=== PATIENT | female | born 1940 | race Caucasian/White ===

== ENCOUNTER 2018-05-02 05:19 | Inpatient (IN) ==
[2018-05-02] MEDS ORDERED: VANCOMYCIN INJ 1,000 MG in SODIUM CHLORIDE 0.9% 250 ML IV ONE (06:00)
[2018-05-02] MEDS ORDERED: ceFAZolin 1,000 MG in SYRINGE 1 EACH IV ONE (06:00)
[2018-05-02] MEDS ORDERED: ceFAZolin 1,000 MG VIAL ONE (06:06)
[2018-05-02] MEDS ORDERED: VANCOMYCIN 1,000 MG VIAL ONE (06:06)
[2018-05-02] MEDS ORDERED: PANTOPRAZOLE 40 MG TABLET PO ONE ×2 (06:17→06:44)
[2018-05-02] MEDS ORDERED: TRANEXAMIC ACID 1,000 MG/10 ML VIAL ONE (06:21)
[2018-05-02] MEDS ORDERED: LACTATED RINGERS 1,000 ML IV SCH (06:30)
[2018-05-02] MEDS ORDERED: BUPIVACAINE SPINAL 0.75% 2 ML AMP SPINAL ONE (06:39)
[2018-05-02] MEDS ORDERED: ROPIVACAINE 0.5% 30 ML VIAL ONE (06:39)
[2018-05-02] MEDS ORDERED: BACITRACIN OINT 0.9 GM PACK TOP ONE (06:41)
[2018-05-02] MEDS ORDERED: DEXTROSE 50% 25 GM/50 ML VIAL IV PRN (07:22)
[2018-05-02] MEDS ORDERED: GLUCAGON 1 MG VIAL IM PRN (07:22)
[2018-05-02] MEDS ORDERED: MORPHINE 4 MG/1 ML VIAL IV PRN (07:23)
[2018-05-02] MEDS ORDERED: ZALEPLON 5 MG CAPSULE PO PRN (07:23)
[2018-05-02] MEDS ORDERED: diphenhydrAMINE CAP 25 MG CAPSULE PO PRN (07:23)
[2018-05-02] MEDS ORDERED: ONDANSETRON 4 MG/2 ML VIAL IV PRN (07:23)
[2018-05-02] MEDS ORDERED: fentaNYL 100 MCG/2 ML VIAL ONE (08:51)
[2018-05-02] MEDS ORDERED: PROPOFOL 200 MG/20 ML VIAL IV ONE (08:51)
[2018-05-02] MEDS ORDERED: MIDAZOLAM 2 MG/2 ML VIAL ONE (08:51)
[2018-05-02] MEDS ORDERED: KETAMINE 500 MG/10 ML VIAL ONE (08:52)
[2018-05-02] MEDS ORDERED: SODIUM CHLORIDE 0.9% 100 ML IV ONE (08:52)
[2018-05-02] MEDS: LACTATED RINGERS 1,000 ML IV SCH ×2 (09:40→19:09)
[2018-05-02] MEDS: INSULIN LISPRO 100 UNIT/ML SUBCUT SCH ×4 (11:08→20:21)
[2018-05-02] MEDS: KETOROLAC 15 MG/1 ML VIAL IV SCH ×3 (11:09→20:13)
[2018-05-02] MEDS: VITAMIN E 400 UNIT CAPSULE PO SCH (11:38)
[2018-05-02] MEDS: MORPHINE 4 MG/1 ML VIAL IV PRN (11:38)
[2018-05-02] MEDS: ACETAMINOPHEN 500 MG TABLET PO SCH ×3 (11:38→23:17)
[2018-05-02] MEDS: ceFAZolin 2,000 MG in PREMIX 1 EACH IV SCH ×2 (11:38→20:15)
[2018-05-02] MEDS: DOCUSATE SODIUM 100 MG CAPSULE PO SCH ×2 (11:38→20:12)
[2018-05-02] MEDS: MULTIVITAMIN (INTRINSIC) CAPSULE PO SCH ×2 (11:38→20:12)
[2018-05-02 11:52] LABS: Calcium 8.9 MG/DL (8.5-10.1); Osmolality,Calculated 284.1 MOS/KG (273-304)
[2018-05-02 11:56] LABS: Basophils % 0.3 % (0.0-0.8); Eosinophils # 0.1 10*3/uL (0.0-0.87); Eosinophils % 2.2 % (0.00-10.9); Hematocrit 38.6 VOL% (35.7-47.0); Hemoglobin 11.5 GM/DL (12.0-16.0); Immature Granulocytes % 0.5 %; Immature Granulocytes Absolute 0.03 #; Lymphocytes # 1.4 10*3/uL (1.4-4.0); Lymphocytes % 23.7 % (21.3-54.2); Mean Corpuscular HGB Conc 29.8 GM/DL (32-36); Mean Corpuscular Hemoglobin 24 PG (27-34); Mean Corpuscular Volume 81.3 FL (87-102); Mean Platelet Volume 12.2 FL (9.6-12.0); Monocytes # 0.4 10*3/uL (0.11-0.8); Monocytes % 7.4 % (1.7-12.7); Neutrophils # 3.8 10*3/uL (1.4-7.4); Neutrophils % 65.9 % (38.7-73.9); Platelet Count 126 T/CUMM (130-400); Red Blood Count 4.75 MC/CUMM (3.8-5.5); Red Cell Distribution Width 14.9 % (9.3-17.3); White Blood Count 5.8 T/CUMM (4-12)
[2018-05-02] MEDS: PANTOPRAZOLE 40 MG TABLET PO SCH (20:12)
[2018-05-02] MEDS: CARVEDILOL 25 MG TABLET PO SCH (20:12)
[2018-05-02] MEDS: CALCIUM (CARBONATE)/VITAMIN D 600 MG-400 UNIT TABLET PO SCH (20:13)
[2018-05-03] MEDS: KETOROLAC 15 MG/1 ML VIAL IV SCH (02:40)
[2018-05-03 04:38] LABS: Basophils % 0.4 % (0.0-0.8); Eosinophils # 0.2 10*3/uL (0.0-0.87); Eosinophils % 3.6 % (0.00-10.9); Hematocrit 32.7 VOL% (35.7-47.0); Hemoglobin 9.7 GM/DL (12.0-16.0); Immature Granulocytes % 0.6 %; Immature Granulocytes Absolute 0.03 #; Lymphocytes % 17.9 % (21.3-54.2); Mean Corpuscular HGB Conc 29.7 GM/DL (32-36); Mean Corpuscular Hemoglobin 24 PG (27-34); Mean Corpuscular Volume 81.3 FL (87-102); Mean Platelet Volume 11.7 FL (9.6-12.0); Monocytes # 0.5 10*3/uL (0.11-0.8); Monocytes % 10.2 % (1.7-12.7); Neutrophils # 3.6 10*3/uL (1.4-7.4); Neutrophils % 67.3 % (38.7-73.9); Platelet Count 101 T/CUMM (130-400); Red Blood Count 4.02 MC/CUMM (3.8-5.5); White Blood Count 5.3 T/CUMM (4-12)
[2018-05-03 05:13] LABS: Calcium 8.5 MG/DL (8.5-10.1); Osmolality,Calculated 279.4 MOS/KG (273-304); Potassium 3.7 MMOL/L (3.5-5.1)
[2018-05-03] MEDS: FONDAPARINUX 2.5 MG/0.5 ML SYRINGE SUBCUT SCH (05:41)
[2018-05-03] MEDS: ACETAMINOPHEN 500 MG TABLET PO SCH (05:41)
[2018-05-03] MEDS: LACTATED RINGERS 1,000 ML IV SCH (05:45)
[2018-05-03] MEDS: metFORMIN 500 MG TABLET PO SCH (08:46)
[2018-05-03] MEDS: CARVEDILOL 25 MG TABLET PO SCH ×2 (08:47→22:30)
[2018-05-03] MEDS: DOCUSATE SODIUM 100 MG CAPSULE PO SCH ×2 (08:47→22:30)
[2018-05-03] MEDS: CALCIUM (CARBONATE)/VITAMIN D 600 MG-400 UNIT TABLET PO SCH ×2 (08:47→22:30)
[2018-05-03] MEDS: MULTIVITAMIN (INTRINSIC) CAPSULE PO SCH ×2 (08:47→22:30)
[2018-05-03] MEDS: INSULIN LISPRO 100 UNIT/ML SUBCUT SCH ×4 (08:47→22:29)
[2018-05-03] MEDS: PANTOPRAZOLE 40 MG TABLET PO SCH ×2 (08:47→22:30)
[2018-05-03] MEDS: VITAMIN E 400 UNIT CAPSULE PO SCH (08:47)
[2018-05-03] MEDS: MAGNESIUM OXIDE 400 MG TABLET PO SCH (08:47)
[2018-05-03] MEDS: MORPHINE 4 MG/1 ML VIAL IV PRN (11:02)
[2018-05-04 06:05] LABS: Basophils % 0.3 % (0.0-0.8); Eosinophils # 0.2 10*3/uL (0.0-0.87); Hematocrit 33.3 VOL% (35.7-47.0); Immature Granulocytes % 0.6 %; Immature Granulocytes Absolute 0.04 #; Lymphocytes # 0.8 10*3/uL (1.4-4.0); Lymphocytes % 11.8 % (21.3-54.2); Mean Corpuscular Hemoglobin 25 PG (27-34); Mean Corpuscular Volume 81.6 FL (87-102); Monocytes # 0.6 10*3/uL (0.11-0.8); Monocytes % 9.3 % (1.7-12.7); Neutrophils # 5.1 10*3/uL (1.4-7.4); Platelet Count 114 T/CUMM (130-400); Red Blood Count 4.08 MC/CUMM (3.8-5.5); Red Cell Distribution Width 15.2 % (9.3-17.3); White Blood Count 6.8 T/CUMM (4-12)
[2018-05-04] MEDS: FONDAPARINUX 2.5 MG/0.5 ML SYRINGE SUBCUT SCH (06:31)
[2018-05-04] MEDS: MORPHINE 4 MG/1 ML VIAL IV PRN (06:33)
[2018-05-04] MEDS: CALCIUM (CARBONATE)/VITAMIN D 600 MG-400 UNIT TABLET PO SCH ×2 (08:12→21:25)
[2018-05-04] MEDS: metFORMIN 500 MG TABLET PO SCH (08:13)
[2018-05-04] MEDS: MAGNESIUM OXIDE 400 MG TABLET PO SCH (08:13)
[2018-05-04] MEDS: MULTIVITAMIN (INTRINSIC) CAPSULE PO SCH ×2 (08:13→21:25)
[2018-05-04] MEDS: PANTOPRAZOLE 40 MG TABLET PO SCH ×2 (08:13→21:25)
[2018-05-04] MEDS: DOCUSATE SODIUM 100 MG CAPSULE PO SCH ×2 (08:13→21:25)
[2018-05-04] MEDS: VITAMIN E 400 UNIT CAPSULE PO SCH (08:13)
[2018-05-04] MEDS: CARVEDILOL 25 MG TABLET PO SCH ×2 (08:14→21:24)
[2018-05-04] MEDS: INSULIN LISPRO 100 UNIT/ML SUBCUT SCH ×4 (08:18→21:26)
[2018-05-04] MEDS: MAGNESIUM HYDROXIDE SUSP 30 ML UDCUP PO PRN (13:16)
[2018-05-04] MEDS: amLODIPine 10 MG TABLET PO SCH (15:59)
[2018-05-05 05:43] LABS: Basophils % 0.2 % (0.0-0.8); Eosinophils # 0.4 10*3/uL (0.0-0.87); Eosinophils % 6.4 % (0.00-10.9); Immature Granulocytes % 0.5 %; Immature Granulocytes Absolute 0.03 #; Lymphocytes % 17.1 % (21.3-54.2); Mean Corpuscular HGB Conc 29.4 GM/DL (32-36); Mean Corpuscular Hemoglobin 24 PG (27-34); Mean Corpuscular Volume 81.8 FL (87-102); Mean Platelet Volume 11.8 FL (9.6-12.0); Monocytes # 0.6 10*3/uL (0.11-0.8); Monocytes % 9.4 % (1.7-12.7); Neutrophils % 66.4 % (38.7-73.9); Platelet Count 117 T/CUMM (130-400); Red Blood Count 3.91 MC/CUMM (3.8-5.5); Red Cell Distribution Width 15.4 % (9.3-17.3)
[2018-05-05 05:44] LABS: Hemoglobin 9.4 GM/DL (12.0-16.0)
[2018-05-05] MEDS: FONDAPARINUX 2.5 MG/0.5 ML SYRINGE SUBCUT SCH (06:09)
[2018-05-05] MEDS: CALCIUM (CARBONATE)/VITAMIN D 600 MG-400 UNIT TABLET PO SCH ×2 (08:15→21:59)
[2018-05-05] MEDS: metFORMIN 500 MG TABLET PO SCH (08:15)
[2018-05-05] MEDS: CARVEDILOL 25 MG TABLET PO SCH ×2 (08:16→22:00)
[2018-05-05] MEDS: MAGNESIUM OXIDE 400 MG TABLET PO SCH (08:18)
[2018-05-05] MEDS: VITAMIN E 400 UNIT CAPSULE PO SCH (08:19)
[2018-05-05] MEDS: amLODIPine 10 MG TABLET PO SCH (08:19)
[2018-05-05] MEDS: PANTOPRAZOLE 40 MG TABLET PO SCH ×2 (08:19→21:59)
[2018-05-05] MEDS: MULTIVITAMIN (INTRINSIC) CAPSULE PO SCH ×2 (08:19→21:59)
[2018-05-05] MEDS: MAGNESIUM HYDROXIDE SUSP 30 ML UDCUP PO PRN ×2 (08:21→17:58)
[2018-05-05] MEDS: INSULIN LISPRO 100 UNIT/ML SUBCUT SCH ×5 (08:23→21:59)
[2018-05-05] MEDS: DOCUSATE SODIUM 100 MG CAPSULE PO SCH ×2 (10:15→22:00)
[2018-05-06] MEDS: FONDAPARINUX 2.5 MG/0.5 ML SYRINGE SUBCUT SCH (06:18)
[2018-05-06] MEDS: DOCUSATE SODIUM 100 MG CAPSULE PO SCH (08:31)
[2018-05-06] MEDS: PANTOPRAZOLE 40 MG TABLET PO SCH (08:32)
[2018-05-06] MEDS: CARVEDILOL 25 MG TABLET PO SCH (08:32)
[2018-05-06] MEDS: MULTIVITAMIN (INTRINSIC) CAPSULE PO SCH (08:32)
[2018-05-06] MEDS: VITAMIN E 400 UNIT CAPSULE PO SCH (08:32)
[2018-05-06] MEDS: CALCIUM (CARBONATE)/VITAMIN D 600 MG-400 UNIT TABLET PO SCH (08:32)
[2018-05-06] MEDS: metFORMIN 500 MG TABLET PO SCH (08:32)
[2018-05-06] MEDS: MAGNESIUM OXIDE 400 MG TABLET PO SCH (08:32)
[2018-05-06] MEDS: INSULIN LISPRO 100 UNIT/ML SUBCUT SCH ×2 (09:34→12:19)
[2018-05-06] MEDS: amLODIPine 10 MG TABLET PO SCH (09:35)
[2018-05-06 12:37] VITALS: BP 143/67
== END 2018-05-06 13:24 | DRG 470 ==
LOC: N.OR 05:19 → N.SDSINP 05:20 → N.3E 09:49
PROVIDERS: ADMIT Orthopaedic Surgery; ATTEND Orthopaedic Surgery